=== PATIENT | female | born 1985 | race Caucasian/White ===

== ENCOUNTER 2023-09-14 13:53 | Inpatient (IN) | payer MEDICAID ==
[~2023-09-14] VITALS: Ht 175.3 cm; Wt 73.9 kg
[~2023-09-14 13:53] MED LIST: SEMA1PEN5 SQ
[2023-09-14] MEDS ORDERED: HYDR-3421 PO (15:49)
[2023-09-14] MEDS ORDERED: APIX5TAB PO (15:49)
[2023-09-14] MEDS ORDERED: METH5SOL20 PO (15:49)
[2023-09-14] MEDS ORDERED: ESCI20TA37 PO (15:49)
[2023-09-14] MEDS ORDERED: PREG200C29 PO (15:49)
[2023-09-14 16:16] LABS: BASOPHILS % (AUTO) 0.5 % (0.0-2.0); EOSINOPHILS % (AUTO) 1.4 % (1.0-6.0); HEMATOCRIT 44.8 % (36-46); HEMOGLOBIN 14.7 g/dL (12.0-16.0); LYMPHOCYTES # (AUTO) 1.5 K/uL (1.0-4.8); LYMPHOCYTES % (AUTO) 26.2 % (22.0-44.0); MEAN CORPUSCULAR HEMOGLOBIN 29.6 pg (26.0-34.0); MEAN CORPUSCULAR HGB CONC 32.8 G/dL (31.0-37.0); MEAN CORPUSCULAR VOLUME 90 fL (80-100); MONOCYTES # (AUTO) 0.3 K/uL (0.1-1.0); MONOCYTES % (AUTO) 5.6 % (2.0-9.0); NEUTROPHILS # (AUTO) 3.8 K/uL (1.8-7.7); NEUTROPHILS % (AUTO) 66.3 % (40.0-70.0); PLATELET COUNT (AUTO) 129 K/uL (150-450); RED BLOOD CELL COUNT(AUTO) 4.97 MIL/uL (4.00-5.20); RED CELL DISTRIBUTION WIDTH 13.5 % (11.5-14.5); WHITE BLOOD COUNT (AUTO) 5.7 K/uL (4.5-11.0)
[2023-09-14 16:28] LABS: ANION GAP 5 mmol/L (8-16); CALCIUM, TOTAL 9.1 mg/dL (8.8-10.5); CARBON DIOXIDE 31 mmol/L (22-29); CHLORIDE 105 mmol/L (98-107); GLOMERULAR FILTR. RATE CALC > 60 mL/min (>60); GLUCOSE,RANDOM 99 mg/dL (70-110); POTASSIUM 4.7 mmol/L (3.5-5.1); SODIUM SERUM 141 mmol/L (136-145); UREA NITROGEN, BLOOD 7 mg/dL (7-18)
[2023-09-14 16:35] LABS: ALCOHOL, BLOOD (SERUM) < 3 mg/dL (0-10)
[2023-09-14 16:59] LABS: HCG,QUANTITATIVE < 1 mIU/mL (0-6)
[2023-09-14 17:10] LABS: COVID AG,FIA SOURCE NPH
[2023-09-14 17:51] LABS: APPEARANCE,URINE HAZY (CLEAR); BILIRUBIN,URINE NEGATIVE (NEGATIVE); COLOR,URINE LIGHT YELLOW (YELLOW); GLUCOSE, URINE (UA) NEGATIVE (NEGATIVE); KETONES,URINE NEGATIVE (NEGATIVE); LEUKOCYTE ESTERASE ,URINE SMALL (NEGATIVE); NITRATE,URINE NEGATIVE (NEGATIVE); OCCULT BLOOD,URINE NEGATIVE (NEGATIVE); PROTEIN,URINE NEGATIVE (NEGATIVE); SPECIFIC GRAVITIY, URINE 1.014 (1.003-1.030); UROBILINOGEN,URINE <=1.0 mg/dL (<=1.0)
[2023-09-14 18:11] LABS: ALCOHOL, URINE DRUG SCREEN NEGATIVE (NEGATIVE); AMPHET/METH SCREEN,URINE NEGATIVE (NEGATIVE); BARBITURATE SCREEN, URINE NEGATIVE (NEGATIVE); BENZODIAZEPINES SCREEN,URINE POSITIVE (NEGATIVE); CANNABINOID SCREEN,URINE NEGATIVE (NEGATIVE); COCAINE SCREEN,URINE NEGATIVE (NEGATIVE); METHADONE SCREEN, URINE NEGATIVE (NEGATIVE); OPIATE SCREEN,URINE NEGATIVE (NEGATIVE); PHENCYCLIDINE SCREEN,URINE NEGATIVE (NEGATIVE)
[2023-09-14 18:13] LABS: SARS-COV2 (COVID) ANTIGEN,FIA Negative (Negative)
[2023-09-14 18:20] LABS: BACTERIA,URINE Moderate /HPF (None Seen); RBC,URINE None Seen /HPF (0-2)
[2023-09-14] MEDS: MetroNIDAZOLE 250 MG TABLET PO ONE (20:21)
[2023-09-15] MEDS: LORazepam 2 MG TABLET PO PRN (01:33)
[2023-09-15] MEDS: ZOLPIDEM TARTRATE 10 MG TABLET PO PRN (01:34)
[2023-09-15 02:36] VITALS: BP 113/80; PULSE 94; RESP 18; TEMP 98; O2SAT 97
[2023-09-15] MEDS: ESCITALOPRAM OXALATE 20 MG TABLET PO SCH (10:37)
[2023-09-15] MEDS: METHADONE HCL 10 MG/5 ML SOLUTION ORAL.SYG PO SCH (10:37)
[2023-09-15] MEDS: HydrOXYzine HCL 25 MG TABLET PO SCH (12:35)
[2023-09-15] MEDS ORDERED: CloNIDine HCL 0.1 MG TABLET PO PRN (14:30)
[2023-09-15] MEDS ORDERED: ONDANSETRON HCL 4 MG TABLET PO PRN (14:30)
[2023-09-15] MEDS ORDERED: LOPERAMIDE HCL 2 MG CAPSULE PO PRN (14:30)
[2023-09-15] MEDS ORDERED: DOCUSATE SODIUM 100 MG CAPSULE PO PRN (14:30)
[2023-09-15] MEDS ORDERED: ALBUTEROL SULFATE HFA 90 MCG/PUFF 8 GM INHALER IH PRN (14:30)
[2023-09-15] MEDS ORDERED: NICOTINE 14 MG/24 HOUR PATCH TD PRN (14:30)
[2023-09-15] MEDS ORDERED: MAG HYDROX/ALUMINUM HYD/SIMETH ES 30 ML SUSPENSION UDCUP PO PRN (14:30)
[2023-09-15] MEDS ORDERED: PETROLATUM,WHITE 28 GM JELLY TP PRN (14:30)
[2023-09-15] MEDS ORDERED: GuaiFENesin/D-METHORPHAN [SUGAR-FREE] 200-20MG/10 ML SYRUP UDCUP PO PRN (14:30)
[2023-09-15] MEDS: APIXABAN 5 MG TABLET PO SCH (16:04)
[2023-09-15 20:19] VITALS: BP 92/60; PULSE 89; RESP 16; TEMP 98.7; O2SAT 96
[2023-09-16 08:13] VITALS: BP 100/65; PULSE 99; RESP 17; TEMP 97.7; O2SAT 97
[2023-09-16 20:45] VITALS: BP 115/62; PULSE 92; RESP 18; TEMP 97.5; O2SAT 98
[2023-09-17 08:14] VITALS: RESP 16
[2023-09-17 08:49] LABS: CHOL/HDL RATIO 3.2 (3.9-5.7); THYROID STIMULATING HORMONE 3.36 uIU/mL (0.36-3.74)
[2023-09-17 10:48] LABS: HEMOGLOBIN A1C 5.3 % (3.8-5.6)
[2023-09-17] MEDS: HALOPERIDOL 5 MG TABLET PO PRN (11:39)
[2023-09-17 21:16] VITALS: BP 98/67; PULSE 115; RESP 16; TEMP 96; O2SAT 96
[2023-09-17 23:52] VITALS: BP 100/67; PULSE 102; RESP 18; TEMP 97.7; O2SAT 97
[2023-09-18 08:17] VITALS: RESP 16
[2023-09-18 14:58] VITALS: BP 104/68; PULSE 99; RESP 16; TEMP 97.4; O2SAT 96
[2023-09-18] MEDS: ACETAMINOPHEN 325 MG TABLET PO PRN (14:58)
[2023-09-18 15:58] VITALS: RESP 16; O2SAT 98
[2023-09-18 20:00] VITALS: BP 104/63; PULSE 81; RESP 16; TEMP 97.2; O2SAT 95
[2023-09-19 08:21] VITALS: BP 107/63; PULSE 65; RESP 14; TEMP 98.1; O2SAT 97
[2023-09-19 08:50] LABS: APPEARANCE,URINE CLEAR (CLEAR); BILIRUBIN,URINE NEGATIVE (NEGATIVE); COLOR,URINE LIGHT YELLOW (YELLOW); GLUCOSE, URINE (UA) NEGATIVE (NEGATIVE); KETONES,URINE NEGATIVE (NEGATIVE); LEUKOCYTE ESTERASE ,URINE NEGATIVE (NEGATIVE); NITRATE,URINE POSITIVE (NEGATIVE); OCCULT BLOOD,URINE NEGATIVE (NEGATIVE); PROTEIN,URINE NEGATIVE (NEGATIVE); SPECIFIC GRAVITIY, URINE 1.015 (1.003-1.030); UROBILINOGEN,URINE <=1.0 mg/dL (<=1.0)
[2023-09-19 08:56] LABS: BACTERIA,URINE Many /HPF (None Seen); RBC,URINE None Seen /HPF (0-2); SQUAMOUS EPITHELIAL CELL,UR Moderate /LPF (None Seen); WBC,URINE 0-2 /HPF (0-5)
[2023-09-19 20:48] VITALS: BP 81/58; PULSE 112; RESP 16; TEMP 97; O2SAT 100
[2023-09-20 09:05] VITALS: BP 100/60; PULSE 76; RESP 17; TEMP 98.4; O2SAT 96
[2023-09-20 20:50] VITALS: BP 103/68; PULSE 103; RESP 18; TEMP 98; O2SAT 96
[2023-09-21 08:48] VITALS: BP 97/60; PULSE 72; RESP 16; TEMP 97.3; O2SAT 96
[2023-09-21] MEDS: MAGNESIUM HYDROXIDE SUSPENSION 30 ML UDCUP PO PRN (17:29)
[2023-09-21 20:51] VITALS: BP 113/60; PULSE 95; RESP 18; TEMP 97.4; O2SAT 96
[2023-09-22 08:21] VITALS: BP 104/60; PULSE 100; RESP 17; TEMP 98; O2SAT 99
[2023-09-22 11:19] VITALS: BP 103/69
[2023-09-22 20:00] VITALS: BP 110/67; PULSE 78; RESP 17; TEMP 97.1; O2SAT 96
[2023-09-23 09:14] VITALS: BP_SYST 116; BP_SYST 118; BP_DIAS 65; BP_DIAS 80; PULSE 80; PULSE 90; RESP 17; RESP 18; TEMP 98; O2SAT 100; O2SAT 99
[2023-09-23 21:35] VITALS: BP 99/62; PULSE 67; RESP 16; TEMP 97.2; O2SAT 91
[2023-09-23 22:50] VITALS: BP 107/65; PULSE 59; RESP 18; O2SAT 95
[2023-09-24 08:37] VITALS: BP 106/67; PULSE 57; RESP 16; TEMP 98.6; O2SAT 100
[2023-09-24 20:22] VITALS: BP 87/56; PULSE 84; RESP 16; TEMP 98; O2SAT 96
[2023-09-25] VITALS (7 sets, daily range): BP systolic 92–114; BP diastolic 46–67; PULSE 70–101; RESP 16–18; TEMP 97.1–98.5; O2SAT 95–99
[2023-09-26] VITALS (7 sets, daily range): BP systolic 94–121; BP diastolic 51–76; PULSE 76–100; RESP 16–17; TEMP 97.3–97.6; O2SAT 97–99
[2023-09-26] MEDS: METHADONE HCL 10 MG/5 ML SOLUTION ORAL.SYG PO SCH (09:00)
[2023-09-27 08:11] VITALS: BP 111/65; PULSE 92; RESP 17; TEMP 97.2; O2SAT 98
[2023-09-27] MEDS: CEPHALEXIN MONOHYDRATE 500 MG CAPSULE PO SCH (08:31)
[2023-09-27] MEDS ORDERED: ESCI20TA87 PO (12:06)
[2023-09-27] MEDS ORDERED: HYDR-4808 PO (12:06)
[2023-09-27] MEDS ORDERED: APIX5TAB PO (12:06)
== END 2023-09-27 12:00 | disposition home or self-care (01) | DRG 751 ==
LOC: EMS 13:53 → B3A 09-15 00:10 → B2S 09-18 14:51
PROVIDERS: ADMIT Psychiatry & Neurology Psychiatry; ATTEND Psychiatry & Neurology Psychiatry
PROC: GZHZZZZ Group Psychotherapy (ICD-10-PCS; principal; 2023-09-15)
PROC: GZ51ZZZ Individual Psychotherapy, Behavioral (ICD-10-PCS; 2023-09-15)
DX: F33.2 Major depressive disorder, recurrent severe without psychotic features (principal); R45.851 Suicidal ideations; I95.9 Hypotension, unspecified; G62.9 Polyneuropathy, unspecified; F41.9 Anxiety disorder, unspecified; F11.10 Opioid abuse, uncomplicated; N76.0 Acute vaginitis; Z20.822 Contact with and (suspected) exposure to COVID-19; Z59.00 Homelessness unspecified; Z79.01 Long term (current) use of anticoagulants; Z79.899 Other long term (current) drug therapy; Z86.711 Personal history of pulmonary embolism; Z87.891 Personal history of nicotine dependence; Z91.51 Personal history of suicidal behavior; Z91.52 Personal history of nonsuicidal self-harm; Z95.2 Presence of prosthetic heart valve; Z88.8 Allergy status to other drugs, medicaments and biological substances
CPT/HCPCS: 80048; 80061; 80307; 81001; 83036; 84443; 84702; 85025; 87086; 87186; 87210; 87491; 87591; 99285; G0480

== ENCOUNTER → 2023-09-25 | Emergency (ER) | payer MEDICAID ==
[~2023-09-25] VITALS: Ht 157.5 cm; Wt 82.0 kg
[~2023-09-25] MED LIST changes: +APIX5TAB PO; +ESCI20TA37 PO; +ESCI20TA87 PO; +HYDR-3421 PO; +HYDR-4808 PO; +METH5SOL20 PO; +PREG200C29 PO
[2023-09-25 21:00] VITALS: TEMP 98.2
[2023-09-25] MEDS: LORazepam 1 MG TABLET PO ONE (23:04)
[2023-09-25 23:07] LABS: BASOPHILS % (AUTO) 0.5 % (0.0-2.0); EOSINOPHILS % (AUTO) 1.5 % (1.0-6.0); HEMATOCRIT 42.6 % (36-46); HEMOGLOBIN 14.3 g/dL (12.0-16.0); LYMPHOCYTES # (AUTO) 1.9 K/uL (1.0-4.8); LYMPHOCYTES % (AUTO) 27.2 % (22.0-44.0); MEAN CORPUSCULAR HEMOGLOBIN 29.7 pg (26.0-34.0); MEAN CORPUSCULAR HGB CONC 33.6 G/dL (31.0-37.0); MEAN CORPUSCULAR VOLUME 89 fL (80-100); MONOCYTES # (AUTO) 0.4 K/uL (0.1-1.0); MONOCYTES % (AUTO) 6.4 % (2.0-9.0); NEUTROPHILS # (AUTO) 4.5 K/uL (1.8-7.7); NEUTROPHILS % (AUTO) 64.4 % (40.0-70.0); PLATELET COUNT (AUTO) 131 K/uL (150-450); RED BLOOD CELL COUNT(AUTO) 4.82 MIL/uL (4.00-5.20); RED CELL DISTRIBUTION WIDTH 13.9 % (11.5-14.5)
[2023-09-25 23:18] LABS: ANION GAP 10 mmol/L (8-16); CALCIUM, TOTAL 8.5 mg/dL (8.8-10.5); CARBON DIOXIDE 27 mmol/L (22-29); CHLORIDE 103 mmol/L (98-107); CREATININE 1.06 mg/dL (0.60-1.30); GLOMERULAR FILTR. RATE CALC 59 mL/min (>60); GLUCOSE,RANDOM 102 mg/dL (70-110); POTASSIUM 4.2 mmol/L (3.5-5.1); SODIUM SERUM 140 mmol/L (136-145); UREA NITROGEN, BLOOD 18 mg/dL (7-18)
[2023-09-25 23:29] LABS: ALCOHOL, BLOOD (SERUM) < 3 mg/dL (0-10)
[2023-09-26 02:10] VITALS: BP 102/56; PULSE 81; RESP 16
== END | disposition still patient (30) ==
LOC: EMS 20:52
DX: Z04.6 Encounter for general psychiatric examination, requested by authority (principal); Z88.8 Allergy status to other drugs, medicaments and biological substances; W01.0XXA Fall on same level from slipping, tripping and stumbling without subsequent striking against object, initial encounter; Y93.89 Activity, other specified; Y92.89 Other specified places as the place of occurrence of the external cause; Y99.8 Other external cause status
CPT/HCPCS: 99284; 80048; 84703; 85025; 36415; 72100; G0480